=== PATIENT | female | born 1980 | race American Indian/Alaskan Native ===

== ENCOUNTER 2016-06-25 14:32 | Emergency (ER) | payer MEDICARE, MEDICAID ==
--- NOTE | 2016-06-25 20:29 | Emergency Department Report ---
HPI - General Chief Complaint: Extremity Injury, Upper Time Seen by Provider: 06/25/16 20:17 - HPI HPI: Patient here reported that she's having pain to right shoulder times one month radiating down to her hand and fingers. She denies any injury. She is also reporting that she has toothache 2 weeks to her left upper and lower tooth. Pain is 10 out of 10 to her shoulder and tooth. Pain is achy and she says she' s been taking Motrin but it's not relieving her pain. She also reports that she is diabetic and she's been out of her diabetic medication and she would like to have refill on Humulin 70/30 and metformin. She denies any fever or chills. Denies any nausea or vomiting. Denies any urinary burning frequency or urgency. Blood sugar in triage is 230. Patient says she would like to be referred to . Pain is off and on but she says it's been getting worse especially to her tooth over the last couple days. ED Past Medical Hx - Past Medical History Previous Medical History?: Yes Hx Congestive Heart Failure: Yes - Surgical History Past Surgical History?: No - Family History Family history: diabetes, hypertension - Social History Smoking Status: Current Every Day Smoker Substance Use Type: None - Medications Home Medications: Home Medications Medication Instructions Recorded Confirmed Last Taken Type Acetaminophen/Codeine [Tylenol #3] 1 tab PO Q6H PRN #12 tab 06/25/16 Unknown Rx Amoxicillin [Amoxicillin TAB] 875 mg PO BID #20 tablet 06/25/16 Unknown Rx Ibuprofen [Motrin] 600 mg PO Q8H PRN #15 tablet 06/25/16 Unknown Rx Metformin HCl [Glucophage] 500 mg PO BID #60 tablet 06/25/16 Unknown Rx ED Review of Systems ROS: Stated complaint: RT SHOULDER PAIN Other details as noted in HPI Comment: All other systems reviewed and negative Constitutional: denies: chills, fever ENT: dental pain. denies: ear pain, throat pain, congestion Respiratory: no symptoms reported Cardiovascular: denies: chest pain, palpitations, dyspnea on exertion, orthopnea , syncope Gastrointestinal: denies: abdominal pain, nausea, vomiting Genitourinary: denies: urgency, dysuria, frequency, hematuria, discharge Musculoskeletal: arthralgia. denies: back pain, joint swelling Skin: denies: rash Neurological: denies: headache, weakness, numbness, paresthesias, confusion, abnormal gait, vertigo Physical Exam - Physical Exam Vital Signs: Vital Signs 06/25/16 16:17 Temperature 98.8 F Pulse Rate 86 Respiratory 18 Rate Blood Pressure 115/68 O2 Sat by Pulse 99 Oximetry General: This is a 35-year-old female well-nourished well-developed and in no acute distress. Physical Exam: Head: Normocephalic atraumatic Mouth: Moist, no pharyngeal exudate or erythema. Uvula is midline and oral airway is patent. Mild gingival enlargement . positive dental tenderness tooth #15 and 17. No induration. No erythema. No facial swelling. No peritonsillar abscesses. Multiple dental caries. Neck: Supple, no C-spine tenderness, no tracheal deviation. Nontender to palpate. no adenopathy Ears: Bilateral TMs pearly ortega . .bilateral EAC without any redness swelling or drainage Eyes: Bilateral pupils equal and reactive to light, bilateral EOM intact. Bilateral sclera and conjunctiva without injection. Normal accommodation Nose: Mucosa moist, positive congestion no erythema. Positive clear drainage. maxillary and frontal sinus non-tender to palpate. Lungs: Clear to auscultate bilaterally no rhonchi wheezes or rales. Normal work of breathing extremity; No CCE. +2 pulses. No neurovascular compromise. Normal sensation to all extremities. CAP refill less than 3 seconds. GI: Soft, NTTP. Normal bowel sounds MSK: Full ROM to all ext. AC and glenohumeral joint without any deformity and nontender to palpate. +5/5 strength all extremities Cardiovascular: S1-S2, regular rate rhythm. No murmurs. Skin: clean Dry and intact no rash no lesions Psych: Normal mood and behavior ED Course Vital Signs 06/25/16 16:17 Temperature 98.8 F Pulse Rate 86 Respiratory 18 Rate Blood Pressure 115/68 O2 Sat by Pulse 99 Oximetry - Reevaluation(s) Reevaluation #1: 06/25/16 21:52 Patient was given [place] 5/325 2 tablets emergency room for toothache. Discussed with her that she'll need to follow-up with a dentist to call tomorrow to schedule an appointment. 06/25/16 21:53 06/25/16 23:09 ED Medical Decision Making - Medical Decision Making ED course: Patient complaining of toothache, right shoulder pain that's been ongoing. She was given [place] 5/325 2 tablets emergency room and I told her she will need to follow-up with a dentist to manage toothache. I told her she has multiple dental cavities and enlargement of her gums and she will need to see a dentist for evaluation and treatment. I referred her to [facility] for her to call tomorrow to schedule an appointment. I also told patient that based on my physical finding she does not have any fracture or dislocation of her shoulder and she will need to follow-up with orthopedic doctor for further evaluation and treatment . Patient had no redness or swelling or tenderness to right shoulder joint. Patient was also given a renewal on her medication to manage her type 2 diabetes. Blood sugar in ED is a 250. I discussed with her that she needs to follow-up with primary care physician to manage her diabetes and I referred her to Dr. Micheal Jackson who is a patient medicine on-call today. I also told her if he does not take Medicaid that she will need to follow-up with [facility] or call Medicaid number to get provider in her ZIP Code for management of diabetes. She voiced understanding of need to follow-up for multiple complaints. Discharged home with prescription for Tylenol 3, amoxicillin, Motrin and metformin. Written. Prescription given for Humalog 70/30 with needles. Condition discharged home with family in stable condition. Critical care attestation.: If time is entered above; I have spent that time in minutes in the direct care of this critically ill patient, excluding procedure time. ED Disposition Clinical Impression: Noncompliance with medication regimen, Elevated blood sugar, Arthralgia of right shoulder region, Toothache, Gingivitis, Dental caries Disposition: DISCHARGED TO HOME OR SELFCARE Is pt being admited?: No Does the pt Need Aspirin: No Condition: Stable Instructions: Dental Caries (ED), Gingivitis (ED), Diabetes Mellitus Type 2 in Adults (ED), Arthralgia (ED), Toothache (ED) Additional Instructions: Please follow-up with resources that was given to you for evaluation and treatment of diabetes, toothache and chronic shoulder pain. Please take medication as prescribed. Tylenol 3 can cause drowsiness so please refrain from driving motor vehicle or operate heavy machinery. Prescriptions: Acetaminophen/Codeine [Tylenol #3] 1 tab PO Q6H PRN #12 tab PRN Reason: Pain Amoxicillin [Amoxicillin TAB] 875 mg PO BID #20 tablet Ibuprofen [Motrin] 600 mg PO Q8H PRN #15 tablet PRN Reason: Pain Metformin HCl [Glucophage] 500 mg PO BID #60 tablet Referrals: HELEN CAROLINA MD [Staff Physician] - 2-3 Days [facility] [Outside] - 2-3 Days [facility] [Outside] - 2-3 Days TITA SOSA MD [Staff Physician] - 3-5 Days Forms: Accompanied Note, Work/School Release Form(ED)
[2016-06-25] MEDS ORDERED: NORCO 5/325 PO ONE (20:31)
[2016-06-25 20:35] VITALS: BP 147/89
== END 2016-06-25 22:40 | disposition home or self-care (01) ==
LOC: ED 14:32
DX: E11.65 Type 2 diabetes mellitus with hyperglycemia (principal); M25.511 Pain in right shoulder; K08.89 Other specified disorders of teeth and supporting structures; K02.9 Dental caries, unspecified; K05.10 Chronic gingivitis, plaque induced; Z91.14 Patient's other noncompliance with medication regimen; I50.9 Heart failure, unspecified; F17.200 Nicotine dependence, unspecified, uncomplicated
CPT/HCPCS: 82962; 99283